=== PATIENT | male | born 1975 | race Caucasian/White ===

== ENCOUNTER 2019-12-26 19:46 | Emergency (ER) | payer OTHER ==
[2019-12-26] MEDS ORDERED: SODIUM CHLORIDE 0.9% 1000ML 1,000 ML IVS ONE (20:10)
[2019-12-26] MEDS ORDERED: ASPIRIN (CHEWABLE) 81 MG TAB PO ONE (20:10)
--- NOTE | 2019-12-26 20:22 | ED.PDOC ---
History of Present Illness - General Time Seen by Provider: 12/26/19 20:08 - History of Present Illness Initial Comments: 43 yo M no significant PMH presents to the ED c/o chest tightness and wanting a covid test. Pt. reports chest tightness began this am but denies fever cough sob recent travel or contact with covid19. Denies fever chills nausea vomiting diarrhea admits chest tightness/pain denies sob diaphoresis. No change in diet rest bowel or bladder. Admits drinking denies smoking denies FH HTN DM has PMD for follow up no other c/o today. PPE worn-N95 surgical mask with attached face shield over N95 gloves and face shield over that Allergies/Adverse Reactions: Allergies NO KNOWN ALLERGY Allergy (Verified 12/14/19 00:14) Home Medications: Ambulatory Orders Clindamycin HCl 300 mg PO Q6H #20 cap 12/14/19 Review of Systems - Review of Systems Constitutional: States: see HPI EENTM: States: see HPI Respiratory: States: see HPI Cardiology: States: see HPI Gastrointestinal/Abdominal: States: see HPI Genitourinary: States: see HPI Musculoskeletal: States: see HPI Skin: States: see HPI Neurological: States: see HPI Endocrine: States: see HPI All other Systems: Reviewed and Negative Past Medical History (General) - Patient Medical History Hx Seizures: No Hx Stroke: No Hx Dementia: No Hx Asthma: No Hx of COPD: No Hx Cardiac Disorders: No Hx Congestive Heart Failure: No Hx Pacemaker: No Hx Hypertension: No Hx Thyroid Disease: No Hx Diabetes: No Hx Gastroesophageal Reflux: No Hx Renal Disease: No Hx Cancer: No Hx of HIV: No Hx Hepatitis C: No Hx MRSA: No - Vaccination History Hx Tetanus, Diphtheria Vaccination: No Hx Influenza Vaccination: No Hx Pneumococcal Vaccination: No - Social History Hx Tobacco Use: No Hx Chewing Tobacco Use: No Hx Alcohol Use: Yes Hx Substance Use: No Hx Substance Use Treatment: No Hx Depression: No Hx Physical Abuse: No Hx Emotional Abuse: No Hx Suspected Abuse: No Family Medical History - Family History Mother Family History: Unknown Physical Exam - Physical Exam General Appearance: No apparent distress Eye Exam: bilateral normal Ears, Nose, Throat: normal ENT inspection Neck: non-tender, full range of motion Respiratory: no respiratory distress Cardiovascular/Chest: regular rate, rhythm Gastrointestinal/Abdominal: non tender, soft Rectal Exam: deferred Back Exam: normal inspection Extremity: normal range of motion, non-tender Neurologic: no motor/sensory deficits Skin Exam: normal color Progress - Progress Progress: 12/26/19 20:29 A/P-Chest Pain Counseling [id number] bolus asa cbc cmp lipase trop bnp rapid covid swab pvc monitor pulse oc ekg cxr reassess EKG-non specific TW changes No STEMI NSR 68bpm - Results/Orders Results/Orders: Laboratory Tests 12/26/19 12/26/19 12/26/19 20:30 20:33 20:33 WBC 5.0 RBC 4.96 Hgb 15.7 Hct 44.6 MCV 90.0 MCH 31.7 H MCHC 35.2 RDW 13.5 Plt Count 194 MPV 8.0 Absolute Neuts (auto) 2.80 Absolute Lymphs (auto) 1.60 Absolute Monos (auto) 0.50 Absolute Eos (auto) 0.10 Absolute Basos (auto) 0.00 Neutrophils % 56.4 Lymphocytes % 32.0 Monocytes % 9.8 H Eosinophils % 1.5 Basophils % 0.3 PT INR PTT (SP) Sodium 140 Potassium 3.9 Chloride 104 Carbon Dioxide 27 Anion Gap 12.9 BUN 12 Creatinine 0.80 BUN/Creatinine Ratio 15.0 Random Glucose 93 Serum Osmolality 278.9 Calcium 9.1 Total Bilirubin 0.5 AST 19 ALT 15 Alkaline Phosphatase 55 Troponin I B-Natriuretic Peptide Serum Total Protein 7.0 Albumin 4.1 Globulin 2.9 Albumin/Globulin Ratio 1.4 Lipase 41 Urine Color Yellow Urine Appearance Clear Urine pH 7.0 Ur Specific [place] 1.015 Urine Protein Negative Urine Glucose (UA) Negative Urine Ketones Negative Urine Blood Negative Urine Nitrite Negative Urine Bilirubin Negative Urine Urobilinogen 0.2 Ur Leukocyte Esterase Negative Urine RBC 0 Urine WBC 0 Ur Epithelial Cells 0 Urine Bacteria 0 12/26/19 12/26/19 12/26/19 20:33 20:33 20:33 WBC RBC Hgb Hct MCV MCH MCHC RDW Plt Count MPV Absolute Neuts (auto) Absolute Lymphs (auto) Absolute Monos (auto) Absolute Eos (auto) Absolute Basos (auto) Neutrophils % Lymphocytes % Monocytes % Eosinophils % Basophils % PT 9.9 INR 1.00 PTT (SP) 25.2 Sodium Potassium Chloride Carbon Dioxide Anion Gap BUN Creatinine BUN/Creatinine Ratio Random Glucose Serum Osmolality Calcium Total Bilirubin AST ALT Alkaline Phosphatase Troponin I < 0.02 B-Natriuretic Peptide < 15.0 Serum Total Protein Albumin Globulin Albumin/Globulin Ratio Lipase Urine Color Urine Appearance Urine pH Ur Specific [place] Urine Protein Urine Glucose (UA) Urine Ketones Urine Blood Urine Nitrite Urine Bilirubin Urine Urobilinogen Ur Leukocyte Esterase Urine RBC Urine WBC Ur Epithelial Cells Urine Bacteria Laboratory Tests 12/26/19 12/26/19 12/26/19 20:30 20:33 20:33 WBC 5.0 RBC 4.96 Hgb 15.7 Hct 44.6 MCV 90.0 MCH 31.7 H MCHC 35.2 RDW 13.5 Plt Count 194 MPV 8.0 Absolute Neuts (auto) 2.80 Absolute Lymphs (auto) 1.60 Absolute Monos (auto) 0.50 Absolute Eos (auto) 0.10 Absolute Basos (auto) 0.00 Neutrophils % 56.4 Lymphocytes % 32.0 Monocytes % 9.8 H Eosinophils % 1.5 Basophils % 0.3 PT INR PTT (SP) Sodium 140 Potassium 3.9 Chloride 104 Carbon Dioxide 27 Anion Gap 12.9 BUN 12 Creatinine 0.80 BUN/Creatinine Ratio 15.0 Random Glucose 93 Serum Osmolality 278.9 Calcium 9.1 Total Bilirubin 0.5 AST 19 ALT 15 Alkaline Phosphatase 55 Troponin I B-Natriuretic Peptide Serum Total Protein 7.0 Albumin 4.1 Globulin 2.9 Albumin/Globulin Ratio 1.4 Lipase 41 Urine Color Yellow Urine Appearance Clear Urine pH 7.0 Ur Specific [place] 1.015 Urine Protein Negative Urine Glucose (UA) Negative Urine Ketones Negative Urine Blood Negative Urine Nitrite Negative Urine Bilirubin Negative Urine Urobilinogen 0.2 Ur Leukocyte Esterase Negative Urine RBC 0 Urine WBC 0 Ur Epithelial Cells 0 Urine Bacteria 0 12/26/19 12/26/19 12/26/19 20:33 20:33 20:33 WBC RBC Hgb Hct MCV MCH MCHC RDW Plt Count MPV Absolute Neuts (auto) Absolute Lymphs (auto) Absolute Monos (auto) Absolute Eos (auto) Absolute Basos (auto) Neutrophils % Lymphocytes % Monocytes % Eosinophils % Basophils % PT 9.9 INR 1.00 PTT (SP) 25.2 Sodium Potassium Chloride Carbon Dioxide Anion Gap BUN Creatinine BUN/Creatinine Ratio Random Glucose Serum Osmolality Calcium Total Bilirubin AST ALT Alkaline Phosphatase Troponin I < 0.02 B-Natriuretic Peptide < 15.0 Serum Total Protein Albumin Globulin Albumin/Globulin Ratio Lipase Urine Color Urine Appearance Urine pH Ur Specific [place] Urine Protein Urine Glucose (UA) Urine Ketones Urine Blood Urine Nitrite Urine Bilirubin Urine Urobilinogen Ur Leukocyte Esterase Urine RBC Urine WBC Ur Epithelial Cells Urine Bacteria 12/26/19 22:00 WBC RBC Hgb Hct MCV MCH MCHC RDW Plt Count MPV Absolute Neuts (auto) Absolute Lymphs (auto) Absolute Monos (auto) Absolute Eos (auto) Absolute Basos (auto) Neutrophils % Lymphocytes % Monocytes % Eosinophils % Basophils % PT INR PTT (SP) Sodium Potassium Chloride Carbon Dioxide Anion Gap BUN Creatinine BUN/Creatinine Ratio Random Glucose Serum Osmolality Calcium Total Bilirubin AST ALT Alkaline Phosphatase Troponin I < 0.02 B-Natriuretic Peptide Serum Total Protein Albumin Globulin Albumin/Globulin Ratio Lipase Urine Color Urine Appearance Urine pH Ur Specific [place] Urine Protein Urine Glucose (UA) Urine Ketones Urine Blood Urine Nitrite Urine Bilirubin Urine Urobilinogen Ur Leukocyte Esterase Urine RBC Urine WBC Ur Epithelial Cells Urine Bacteria EXAM: XR Chest, 1 View CLINICAL HISTORY: The patient is 43 years old and is Male; chest tightness TECHNIQUE: Single upright portable view of the chest. COMPARISON: No relevant prior studies available. FINDINGS: Lungs: Unremarkable. No consolidation. Pleural space: Unremarkable. No pneumothorax. Heart: Unremarkable. No cardiomegaly. Mediastinum: Unremarkable. Bones/joints: No acute fracture visualized. Upper abdomen: No free air in the visualized upper abdomen. IMPRESSION: No acute cardiopulmonary process identified. Electronically signed by: Annamaria Mckenna MD 12/26/2019 8:38 PM CDT On reassessment pt feeling improved with ED treatment will d/c follow up pcp Departure - Departure Clinical Impression: Counseled about COVID-19 virus infection Chest pain Qualifiers: Chest pain type: unspecified Qualified Code(s): R07.9 - Chest pain, unspecified Time of Disposition: 22:36 Disposition: Discharge to Home or Self Care Condition: Good Referrals: Silvestre Munroe MD [Active Staff] - 1-2 Days Home Medications: Ambulatory Orders Clindamycin HCl 300 mg PO Q6H #20 cap 12/14/19
--- NOTE | 2019-12-26 20:40 | RAD ---
EXAM: XR Chest, 1 View CLINICAL HISTORY: The patient is 43 years old and is Male; chest tightness TECHNIQUE: Single upright portable view of the chest. COMPARISON: No relevant prior studies available. FINDINGS: Lungs: Unremarkable. No consolidation. Pleural space: Unremarkable. No pneumothorax. Heart: Unremarkable. No cardiomegaly. Mediastinum: Unremarkable. Bones/joints: No acute fracture visualized. Upper abdomen: No free air in the visualized upper abdomen. IMPRESSION: No acute cardiopulmonary process identified. Electronically signed by: Annamaria Mckenna MD 12/26/2019 8:38 PM CDT
[2019-12-26 20:47] VITALS: TEMP 97.9
[2019-12-26] MEDS ORDERED: ONDANSETRON INJ 4 MG/2 ML VIAL ONE (22:13)
[2019-12-26] MEDS ORDERED: ONDANSETRON INJ 4 MG/2 ML VIAL IV ONE (22:34)
[2019-12-26] MEDS ORDERED: ACETAMINOPHEN 500 MG TAB PO ONE (22:59)
[2019-12-26] MEDS ORDERED: ONDANSETRON ODT 8 MG TAB SL ONE (22:59)
[2019-12-27 00:05] VITALS: BP 148/80; O2SAT 98
== END 2019-12-26 23:50 | disposition home or self-care (01) ==
LOC: ER 19:46
DX: R07.89 Other chest pain (principal); Z20.828 Contact with and (suspected) exposure to other viral communicable diseases
CPT/HCPCS: 36415; 71045; 80053; 81001; 83690; 83880; 84484; 85025; 85610; 85730; 87635; 93005; J2405; J7030